=== PATIENT | female | born 1985 | race Caucasian/White ===

== ENCOUNTER 2018-03-30 20:11 | Inpatient (IN) | payer OTHER ==
[2018-03-30] MEDS ORDERED: BUTORPHANOL 2 MG INJ (20:28)
[2018-03-30] MEDS ORDERED: BUTORPHANOL 1 MG INJ IV (20:30)
[2018-03-30] MEDS ORDERED: BUTORPHANOL 2 MG INJ IV (20:30)
[2018-03-30] MEDS ORDERED: LIDOCAINE 1% (MPF) 30 ML INJ INJ (20:30)
[2018-03-30] MEDS ORDERED: CARBOPROST 250 MCG INJ IM (20:30)
[2018-03-30] MEDS ORDERED: METHYLERGONOVINE 0.2 MG INJ IM (20:30)
[2018-03-30] MEDS ORDERED: MISOPROSTOL 200 MCG TAB PR (20:30)
[2018-03-30] MEDS ORDERED: ACETAMINOPHEN/CODEINE #3 TAB PO (20:30)
[2018-03-30] MEDS ORDERED: OXYTOCIN 30 UNITS/LR 500 ML IV ×2 (20:30)
[2018-03-30 20:37] LABS: ADD MAN DIFF? NO
[2018-03-30] MEDS ORDERED: LIDOCAINE 1% (MPF) 30 ML INJ (20:39)
[2018-03-30 20:41] LABS: BASOPHILS % 0.3 % (0.0-2.0); EOSINOPHILS % 0.1 % (0.0-7.0); HEMATOCRIT 32.6 % (37.0-47.0); HEMOGLOBIN 10.6 g/dl (12.0-16.0); LYMPHOCYTES # 1.8 10^3/ul (0.8-2.9); LYMPHOCYTES % 17.5 % (15.0-51.0); MEAN CORPUSCULAR HEMOGLOBIN 25.1 pg (29.0-33.0); MEAN CORPUSCULAR HGB CONC 32.5 g/dl (32.0-37.0); MEAN CORPUSCULAR VOLUME 77.3 fl (82.0-101.0); MEAN PLATELET VOLUME 12.8 fl (7.4-10.4); MONOCYTE # 0.8 10^3/ul (0.3-0.9); MONOCYTES % 7.5 % (0.0-11.0); NEUTROPHIL # 7.4 10^3/ul (1.6-7.5); NEUTROPHILS % 73.9 % (39.0-77.0); PLATELET COUNT 181 10^3/UL (140-415); RED BLOOD COUNT 4.22 10^6/ul (4.20-5.40); RED CELL DISTRIBUTION WIDTH 15.1 % (11.5-14.5)
[2018-03-30] MEDS ORDERED: AMPICILLIN 2 GM/NS (PMX) 100 ML (20:42)
[2018-03-30] MEDS: AMPICILLIN 2 GM/NS (PMX) 100 ML IV (20:46)
[2018-03-30] MEDS: LACTATED RINGER'S 1,000 ML IV* (20:46)
[2018-03-30 21:01] LABS: INR 0.92; PARTIAL THROMBOPLASTIN TIME 26.2 Sec (25.0-35.0); PROTIME 12.4 Sec (11.9-14.9)
[2018-03-30 21:08] LABS: ALANINE AMINOTRANSFERASE 14 IU/L (13-69); ALBUMIN 3.7 g/dl (3.3-4.9); ALBUMIN/GLOBULIN RATIO 1.12; ALKALINE PHOSPHATASE 286 IU/L (42-121); ANION GAP 15 (8-16); BLOOD UREA NITROGEN 14 mg/dl (7-20); CALCIUM 9.1 mg/dl (8.4-10.2); CARBON DIOXIDE 18 mmol/L (21-31); CHLORIDE 106 mmol/L (97-110); CREATININE 0.57 mg/dl (0.44-1.00); GLUCOSE 100 mg/dl (70-220); POTASSIUM 3.5 mmol/L (3.5-5.1); SODIUM 135 mmol/L (135-144)
[2018-03-30 21:14] LABS: BILIRUBIN,INDIRECT 0.4 mg/dl (0-1.1); BILIRUBIN,TOTAL 0.4 mg/dl (0.2-1.3)
[2018-03-30] MEDS: OXYTOCIN 30 UNITS/LR 500 ML IV ×2 (21:14→21:30)
[2018-03-30] MEDS: AMPICILLIN 1 GM/NS (PMX) 50 ML IV (21:17)
[2018-03-30] MEDS: MINERAL OIL LIGHT 10 ML VIAL TOP (21:17)
[2018-03-30 21:33] LABS: HEPATITIS B SURFACE ANTIGEN NEGATIVE (NEGATIVE)
[2018-03-30 21:46] LABS: ASPARTATE AMINO TRANSFERASE 23 IU/L (15-46)
[2018-03-30] MEDS: IBUPROFEN 600 MG TAB PO (22:37)
[2018-03-31] MEDS ORDERED: HYDROCODONE/APAP (5/325) TAB PO ×2
[2018-03-31] MEDS ORDERED: CARBOPROST 250 MCG INJ IM
[2018-03-31] MEDS ORDERED: METHYLERGONOVINE 0.2 MG INJ IM
[2018-03-31] MEDS ORDERED: OXYTOCIN 30 UNITS/LR 500 ML IV
[2018-03-31] MEDS ORDERED: MISOPROSTOL 200 MCG TAB PR
[2018-03-31] MEDS ORDERED: ZOLPIDEM 5 MG TAB PO
[2018-03-31] MEDS ORDERED: DIBUCAINE 1% 30 GM OINT PR
[2018-03-31] MEDS: WITCH HAZEL/GLYCERIN PAD PR (01:23)
[2018-03-31] MEDS: BENZOCAINE 20% 56 ML SPRAY TOP (01:24)
[2018-03-31] MEDS: LANOLIN 7 GM TUBE TOP (01:24)
[2018-03-31] MEDS: LACTATED RINGER'S 1,000 ML IV* (02:21)
[2018-03-31] MEDS: IBUPROFEN 600 MG TAB PO ×5 (05:33→23:31)
[2018-03-31 08:28] LABS: ADD MAN DIFF? NO
[2018-03-31 08:36] LABS: WHITE BLOOD COUNT 9.5 10^3/ul (4.8-10.8)
[2018-03-31 08:36] LABS: BASOPHILS % 0.2 % (0.0-2.0); EOSINOPHILS % 0.1 % (0.0-7.0); HEMATOCRIT 28.5 % (37.0-47.0); HEMOGLOBIN 8.8 g/dl (12.0-16.0); LYMPHOCYTES % 21.2 % (15.0-51.0); MEAN CORPUSCULAR HEMOGLOBIN 24.4 pg (29.0-33.0); MEAN CORPUSCULAR HGB CONC 30.9 g/dl (32.0-37.0); MEAN CORPUSCULAR VOLUME 79.2 fl (82.0-101.0); MEAN PLATELET VOLUME 12.7 fl (7.4-10.4); MONOCYTE # 0.7 10^3/ul (0.3-0.9); MONOCYTES % 6.9 % (0.0-11.0); NEUTROPHIL # 6.7 10^3/ul (1.6-7.5); NEUTROPHILS % 70.9 % (39.0-77.0); PLATELET COUNT 154 10^3/UL (140-415); RED CELL DISTRIBUTION WIDTH 15.1 % (11.5-14.5)
[2018-03-31] MEDS: SENNA/DOCUSATE NA (8.6MG/50MG) TAB PO ×2 (08:58→21:31)
[2018-03-31] MEDS: MAGNESIUM HYDROXIDE 30ML CUP PO ×2 (08:58→21:31)
[2018-03-31 15:27] LABS: RAPID PLASMA REAGIN NONREACTIVE (NR)
[2018-04-01] MEDS: IBUPROFEN 600 MG TAB PO ×2 (05:43→11:46)
[2018-04-01] MEDS: DIPHTH/TET/ACEL PERTUSS (ADULT) 0.5 ML VIAL IM* (07:20)
[2018-04-01] MEDS: MEASLES,MUMPS,RUBELLA VACCINE INJ SC* (07:20)
[2018-04-01] MEDS: VARICELLA VACCINE LIVE/PF 1,350 UNIT/0.5 ML ML SC* (07:21)
[2018-04-01] MEDS: MAGNESIUM HYDROXIDE 30ML CUP PO (08:32)
[2018-04-01] MEDS: SENNA/DOCUSATE NA (8.6MG/50MG) TAB PO (08:32)
[2018-04-01 13:01] LABS: RUBELLA ANTIBODY - IGG <0.90 index
[2018-04-03 11:52] LABS: RUBELLA ANTIBODY - IGM <20.00 AU/mL
== END 2018-04-01 12:55 | disposition home or self-care (01) | DRG 775 ==
LOC: OBT 20:11 → L-D 20:12 → OBT 20:20 → L-D 20:20 → PP1 23:34
PROVIDERS: Obstetrics & Gynecology
PROC: 10E0XZZ Delivery of Products of Conception, External Approach (ICD-10-PCS; principal; 2018-03-30)
DX: O34.219 Maternal care for unspecified type scar from previous cesarean delivery (principal); O69.81X0 Labor and delivery complicated by cord around neck, without compression, not applicable or unspecified; Z3A.37 37 weeks gestation of pregnancy; Z37.0 Single live birth
CPT/HCPCS: 80053; 85025; 85610; 85730; 86592; 86762; 86850; 86900; 86901; 87340